=== PATIENT | male | born 1980 | race Caucasian/White ===

== ENCOUNTER 2016-11-03 10:11 | Emergency (ER) | payer OTHER ==
--- NOTE | 2016-11-03 10:48 | XR ---
EXAMINATION TYPE: XR ankle complete LT DATE OF EXAM: 11/03/2016 10:43 AM COMPARISON: NONE HISTORY: Left ankle pain after twisting motion and snapping sound while dancing last night. TECHNIQUE: 3 views of the left ankle were obtained. FINDINGS: There is a small tibiotalar joint effusion seen anteriorly and posteriorly as well as overl nigel soft tissue swelling surrounding the ankle joint. Ankle mortise is intact. There is no evidence of fracture or dislocation. No chronic osseous changes are seen. There is no soft tissue laceration o r foreign body present. IMPRESSION: Generalized soft tissue swelling around the right ankle and small joint effusion with no evidence of fracture or dislocation.
--- NOTE | 2016-11-03 10:51 | XR ---
EXAMINATION TYPE: XR foot complete RT DATE OF EXAM: 11/03/2016 10:43 AM COMPARISON: NONE HISTORY: Right dorsal foot pain after twisting motion and snapping sound while dancing last night. TECHNIQUE: 3 views of the right foot were obtained. FINDINGS: There is no evidence of fracture or dislocation. No chronic osseous pathology is identified . No skin laceration or foreign body is seen. Mild midfoot generalized subcutaneous soft tissue swell ing is noted. IMPRESSION: Mild generalized midfoot subcutaneous soft tissue swelling with no evidence of fracture o r dislocation.
--- NOTE | 2016-11-03 11:02 | ED ---
Lower Extremity Injury HPI - General Chief Complaint: Extremity Injury, Lower Stated Complaint: ankle pain Time Seen by Provider: 11/03/16 10:23 Source: patient, RN notes reviewed Mode of arrival: ambulatory Limitations: no limitations - History of Present Illness Initial Comments: 36-year-old male presents to the emergency Department with chief complaint of right foot pain, left ankle pain. Patient states that he was break dancing and states that he twisted his left ankle and right foot. Patient states that he is able bear weight but states it's tender states is swollen over the area. Patient's had no prior fractures. - Related Data Home Medications Medication Instructions Recorded Confirmed No Known Home Medications [No 11/03/16 11/03/16 Known Home Medications] Allergies Allergy/AdvReac Type Severity Reaction Status Date / Time No Known Allergies Allergy Verified 11/03/16 10:19 Review of Systems ROS Statement: Those systems with pertinent positive or pertinent negative responses have been documented in the HPI. ROS Other: All systems not noted in ROS Statement are negative. Past Medical History Past Medical History: No Reported History History of Any Multi-Drug Resistant Organisms: None Reported Past Surgical History: No Surgical Hx Reported Past Psychological History: No Psychological Hx Reported Smoking Status: Former smoker Past Alcohol Use History: Occasional Past Drug Use History: None Reported General Exam Limitations: no limitations General appearance: alert, in no apparent distress Head exam: Present: atraumatic, normocephalic, normal inspection Respiratory exam: Present: normal lung sounds bilaterally. Absent: respiratory distress, wheezes, rales, rhonchi, stridor Cardiovascular Exam: Present: regular rate, normal rhythm, normal heart sounds. Absent: systolic murmur, diastolic murmur, rubs, gallop, clicks Extremities exam: Present: other (Right foot there is some tenderness over the dorsal aspect of the second third and fourth minute tarsal for mild swelling there is no ankle tenderness. Pedal pulses are equal bilaterally, left ankle there is tenderness along the medial and lateral malleolus with generalized swelling there is no ecchymosis no laxity noted there is no foot tenderness no tenderness proximal to the left ankle.) Course Vital Signs 11/03/16 10:13 Temperature 96.8 F L Pulse Rate 112 H Respiratory 20 Rate Blood Pressure 122/67 O2 Sat by Pulse 95 Oximetry Medical Decision Making - Medical Decision Making 36-year-old male present emergency department for foot and ankle pain. There is no acute fractures. Patient be discharged Disposition Clinical Impression: Left ankle sprain, Right foot sprain Disposition: HOME SELF-CARE Condition: Stable Instructions: Foot Sprain (ED), Ankle Sprain (ED) Additional Instructions: Please return to the Emergency Department if symptoms worsen or any other concerns. Time of Disposition: 11:01
[2016-11-03 11:40] VITALS: BP 120/72; PULSE 94; RESP 18; TEMP 97.2
== END 2016-11-03 11:40 | disposition home or self-care (01) ==
LOC: EC 10:11
DX: S93.402A Sprain of unspecified ligament of left ankle, initial encounter (principal); S93.601A Unspecified sprain of right foot, initial encounter; X50.1XXA Overexertion from prolonged static or awkward postures, initial encounter; Y93.41 Activity, dancing; Z87.891 Personal history of nicotine dependence
CPT/HCPCS: 99283

== ENCOUNTER → 2019-04-02 | Outpatient (CLI) | payer OTHER ==
[2019-04-02 14:20] LABS: ALT 51 U/L (21-72); AST 41 U/L (17-59); African American GFR (CKD) >90 (>60 ml/min/1.73 sqM); Albumin 4.8 g/dL (3.5-5.0); Albumin/Globulin Ratio 1.6; Alkaline Phosphatase 75 U/L (38-126); Anion Gap 11 mmol/L; Blood Urea Nitrogen 16 mg/dL (9-20); Calcium 9.5 mg/dL (8.4-10.2); Carbon Dioxide 26 mmol/L (22-30); Chloride 104 mmol/L (98-107); Glucose 133 mg/dL (74-99); Potassium 4.4 mmol/L (3.5-5.1); Sodium 141 mmol/L (137-145); Total Bilirubin 0.5 mg/dL (0.2-1.3); Total Protein 7.8 g/dL (6.3-8.2)
[2019-04-02 14:38] LABS: Basophils % (A) 0 %; Eosinophils % (A) 0 %; HCT 45.2 % (39.0-53.0); HGB 15.3 gm/dL (13.0-17.5); Lymphocytes # (A) 1.6 k/uL (1.0-4.8); Lymphocytes % (A) 17 %; MCH 29.2 pg (25.0-35.0); MCHC 33.8 g/dL (31.0-37.0); MCV 86.4 fL (80.0-100.0); Monocytes # (A) 0.4 k/uL (0-1.0); Monocytes % (A) 4 %; Neutrophils # (A) 7.7 k/uL (1.3-7.7); Neutrophils % (A) 78 %; Platelet Count 222 k/uL (150-450); RBC 5.23 m/uL (4.30-5.90); WBC 9.9 k/uL (3.8-10.6)
[2019-04-02 14:43] LABS: Creatine Kinase MB 0.5 ng/mL (0.0-2.4); Troponin I <0.012 ng/mL (0.000-0.034)
[2019-04-02 21:29] LABS: Hemoglobin A1C 5.7 % (4.0-6.0)
== END | disposition home or self-care (01) ==
LOC: LABWHC1 13:51
PROVIDERS: ATTEND Nurse Practitioner Adult Health
DX: R42 Dizziness and giddiness (principal)
CPT/HCPCS: 36415; 80053; 82553; 83036; 84484; 85025

== ENCOUNTER → 2023-07-25 | Outpatient (CLI) | payer BC ==
[2023-07-25 11:38] LABS: HGB 15.6 gm/dL (13.0-17.5); MCH 29.9 pg (25.0-35.0); MCHC 33.3 g/dL (31.0-37.0); MCV 89.8 fL (80.0-100.0); Mean Platelet Volume 7.5; Platelet Count 204 k/uL (150-450); RBC 5.23 m/uL (4.30-5.90); WBC 6.1 k/uL (3.8-10.6)
--- NOTE | 2023-07-25 12:05 | CT ---
EXAMINATION TYPE: CT angio chest DATE OF EXAM: 07/25/2023 COMPARISON: None HISTORY: 42 year-old male shortness of breath, PE Vs Lung Nodules. R06.00 DYSPNEA, UNSPECIFIED TECHNIQUE: Contiguous axial scanning of the chest performed with IV Contrast, patient injected with 1 00 ml mL of Isovue 370. Coronal/sagittal MIP reconstructions performed. CT DLP: 528 mGycm Automated exposure control for dose reduction was used. FINDINGS: Heart normal size without pericardial effusion. No flattening of the interventricular septum or reflu x of contrast into the hepatic veins. Aorta normal caliber with conventional arch vessel branching anatomy. No thoracic lymph adenopathy by CT size criteria. There is no consolidation or pleural effusion. Suboptimal contrast bolus. No obvious large central pulmonary embolus. Many of the lobar and more dis betsy arterial branches are very limited and nondiagnostic. 3 mm posterior left midlung pulmonary nodule questionable clinical significance, axial image 68. 3 mm lateral right upper lobe pulmonary nodule, axial image 41. Liver appears enlarged with marked diminished attenuation. Geographic areas of higher density may rep resent fatty sparing. 3 month follow-up liver ultrasound recommended after beginning clinical managem ent. Bones: No osseous destructive process. IMPRESSION: 1. SUBOPTIMAL CONTRAST BOLUS. NO OBVIOUS LARGE CENTRAL PULMONARY EMBOLUS IS SEEN. HOWEVER, MANY OF TH E LOBAR, SEGMENTAL, AND MORE DISTAL ARTERIAL BRANCHES ARE LIMITED TO NONDIAGNOSTIC AND EMBOLI IN THES E LOCATIONS CANNOT BE EXCLUDED ON THE BASIS OF THIS EXAM. 2. A COUPLE 3 MM PULMONARY NODULES OF QUESTIONABLE CLINICAL SIGNIFICANCE. A PRECAUTION MEASURE, CO NSIDER 12 MONTH FOLLOW-UP. 3. VERY SEVERE HEPATIC STEATOSIS. AREAS OF HIGHER PARENCHYMAL DENSITY MAY REPRESENT FATTY SPARING. AP PROPRIATE CLINICAL MANAGEMENT IS ADVISED. ALSO, RECOMMEND THREE-MONTH FOLLOW-UP LIVER ULTRASOUND TO [facility].
[2023-07-25 12:21] LABS: ALT 50 U/L (4-49); AST 40 U/L (17-59); African American GFR (CKD) >90 (>60 ml/min/1.73 sqM); Albumin 4.6 g/dL (3.5-5.0); Albumin/Globulin Ratio 1.5; Alkaline Phosphatase 68 U/L (38-126); Anion Gap 10 mmol/L; Blood Urea Nitrogen 14 mg/dL (9-20); C Reactive Protein 1.2 mg/dL (<1.0); Calcium 9.3 mg/dL (8.4-10.2); Carbon Dioxide 25 mmol/L (22-30); Chloride 103 mmol/L (98-107); Globulin 3.1 g/dL; Glucose 135 mg/dL (74-99); Non-African American GFR(CKD) 83 (>60 ml/min/1.73 sqM); Potassium 4.3 mmol/L (3.5-5.1); Sodium 138 mmol/L (137-145); Total Bilirubin 0.6 mg/dL (0.2-1.3); Total Protein 7.7 g/dL (6.3-8.2)
[2023-07-25 12:27] LABS: NT-Pro-B-Type Natriuretic Pept <20 pg/mL
[2023-07-25 16:05] LABS: Erythrocyte Sedimentation Rate 17 mm/Hr (0-15)
== END | disposition home or self-care (01) ==
LOC: RADCTMAIN 10:50
PROVIDERS: ATTEND Family Medicine
DX: K76.0 Fatty (change of) liver, not elsewhere classified (principal); R06.00 Dyspnea, unspecified; R91.8 Other nonspecific abnormal finding of lung field
CPT/HCPCS: 85379; 83880; 80053; 85652; 85027; 86140; 71275; 36415; Q9967